=== PATIENT | male | born 1960 | race Caucasian/White ===

== ENCOUNTER 2016-10-13 11:08 | Emergency (ER) | payer MEDICAID, OTHER ==
[2016-10-13 11:19] VITALS: RESP 16
[2016-10-13] MEDS ORDERED: TDAP ADULT 0.5 ML INJ (BOOSTRIX) IM ONE (11:28)
--- NOTE | 2016-10-13 11:32 | EDPHY ---
H & P Time Seen by Provider: 10/13/16 11:23 HPI/ROS: CHIEF COMPLAINT: Right index finger HISTORY OF PRESENT ILLNESS: Patient is a 48-year-old male who presents emergency department with right index finger swelling. The patient states he stuck his finger tip with a foreign. He feels this may still be present just under the tip of his nail. He tried to get out with a razor blade. He now has swelling on his right index finger. His pain is moderate. There is no streaking up his hand or arm. No numbness or tingling. REVIEW OF SYSTEMS: Negative Past Medical/Surgical History: Negative Smoking Status: Never smoked Physical Exam: General Appearance: Alert and no distress. Head: Pupils equal. Normal. Respiratory: No respiratory distress. Cardiac: regular rate and rhythm. Extremities: patient has swelling at the distal end of his right index finger. There is no significant erythema. No streaking up the finger or hand. No discomfort with passive range of motion of the finger. Skin: No rashes or lesions. Neuro: Alert. Normal mood and affect. Constitutional: Initial Vital Signs Temperature (C) 36.5 C 10/13/16 11:15 Heart Rate 68 10/13/16 11:15 Respiratory Rate 16 10/13/16 11:15 Blood Pressure 105/62 10/13/16 11:15 O2 Sat (%) 96 10/13/16 11:15 O2 Delivery Mode Room Air Allergies/Adverse Reactions: No Known Allergies Allergy (Unverified 10/13/16 11:15) Home Medications: Medication Instructions Recorded Cephalexin [Keflex (*)] 500 mg PO QID 7 Days 10/13/16 Hydrocodone/APAP 5/325 [Ware 1 - 2 tab PO Q4 #13 tab 10/13/16 5/325 (RX)] Medical Decision Making ED Course/Re-evaluation: In the emergency department I discussed possible etiologies with the patient. I answered all his questions. Procedure: Felon I&D Indication: Abscess The patient verbally consented to the drainage. I discussed the risks and benefits of the procedure. The patient was given a digital block with 1% lidocaine. He tolerated the procedure well. Under sterile or precautions, a horizontal longitudinal incision was made into the pulp of the finger. A large amount of pus was obtained. I tried needed the patient's nail and also obtained pus. There was a small notable puncture wound at the tip of the finger but there is no visible foreign body. The postprocedure the patient's wound was copiously irrigated and dressed. Procedure: Digital block Indication: Baironsera I&D I performed a digital block on the patient's right index finger and normal fashion. Patient tolerated the procedure well. Post treatment the patient had normal vascular exam. X-ray right finger: Please refer the dictated report. No foreign body noted. I discussed the result with the patient. I answered all his questions. He was given wound care instructions. He will follow up with Dr. Mcmahon from Hand surgery. He will take his entire course of antibiotics. Differential Diagnosis: My differential includes but is not limited to paronychia, felon, foreign body, tenosynovitis, cellulitis, abscess - Data Points Medications Given: Discontinued Medications Diphtheria/Tetanus/Acell Pertussis (Boostrix) 0.5 ml IM .ONCE ONE Stop: 10/13/16 11:29 Last Admin: 10/13/16 11:37 Dose: 0.5 ml Departure - Departure Disposition: Home, Routine, Self-Care Clinical Impression: Baironon of finger Condition: Good Instructions: Abscess (ED) Referrals: Jaya Mcmahon MD [Medical Doctor] - 2-3 days without fail Prescriptions: Cephalexin [Keflex (*)] 500 mg PO QID 7 Days Hydrocodone/APAP 5/325 [Ware 5/325 (RX)] 1 - 2 tab PO Q4 #13 tab
[2016-10-13] MEDS ORDERED: HYDROGEN PEROXIDE 236 ML BOTTLE TP ONE (12:07)
[2016-10-13 12:59] VITALS: BP 138/71; PULSE 54; TEMP 98.2; O2SAT 95
== END 2016-10-13 13:12 | disposition home or self-care (01) ==
PROC: 3E0234Z Introduction of Serum, Toxoid and Vaccine into Muscle, Percutaneous Approach (ICD-10-PCS; principal; 2016-10-13)
PROC: 0H9FXZZ Drainage of Right Hand Skin, External Approach (ICD-10-PCS; principal; 2016-10-13)
DX: L03.011 Cellulitis of right finger (principal); Z23 Encounter for immunization; W22.8XXA Striking against or struck by other objects, initial encounter